=== PATIENT | female | born 1945 | race Hispanic/Latino ===

== ENCOUNTER → 2021-10-08 | Outpatient (CLI) | payer OTHER ==
[2021-10-08 15:31] LABS: CREATININE 0.9 mg/dL (0.5-1.5)
== END | disposition home or self-care (01) ==
LOC: LAB 14:36
PROVIDERS: ATTEND Otolaryngology Plastic Surgery within the Head & Neck
DX: H93.3X9 Disorders of unspecified acoustic nerve (principal)
CPT/HCPCS: 36415; 82565; 84520

== ENCOUNTER → 2021-11-06 | Outpatient (CLI) | payer OTHER ==
[2021-11-06 13:18] LABS: CREATININE 0.7 mg/dL (0.5-1.5)
== END | disposition home or self-care (01) ==
LOC: LAB 12:26
PROVIDERS: ATTEND Otolaryngology Plastic Surgery within the Head & Neck
DX: H90.3 Sensorineural hearing loss, bilateral (principal); H93.3X9 Disorders of unspecified acoustic nerve
CPT/HCPCS: 36415; 82565; 84520

== ENCOUNTER → 2021-11-10 | Outpatient (CLI) | payer OTHER ==
[~2021-11-10] MED LIST: GADOTERATE MEGLUMINE 10 MMOL/20 ML VIAL IV ONE
== END | disposition home or self-care (01) ==
LOC: EDUNIT# 10-15 09:00 → RAH 12:30
PROVIDERS: ATTEND Otolaryngology Plastic Surgery within the Head & Neck
DX: H70.93 Unspecified mastoiditis, bilateral (principal); H93.3X9 Disorders of unspecified acoustic nerve
CPT/HCPCS: 70553; A9575

== ENCOUNTER → 2022-12-29 | Outpatient (CLI) | payer OTHER | END | disposition home or self-care (01) | LOC: RAH 08:49 | PROVIDERS: ATTEND Family Medicine | DX: R92.8 Other abnormal and inconclusive findings on diagnostic imaging of breast (principal); N64.89 Other specified disorders of breast | CPT/HCPCS: 76641; 77065 ==

== ENCOUNTER → 2023-02-16 | Outpatient (CLI) | payer OTHER | END | disposition home or self-care (01) | LOC: RAH 07:45 | PROVIDERS: ATTEND Family Medicine | DX: R07.9 Chest pain, unspecified (principal); R07.81 Pleurodynia | CPT/HCPCS: 71046; 71100 ==

== ENCOUNTER → 2023-02-19 | Outpatient (CLI) | payer OTHER | END | disposition home or self-care (01) | LOC: RAH 12:25 | PROVIDERS: ATTEND Family Medicine | DX: S83.232A Complex tear of medial meniscus, current injury, left knee, initial encounter (principal); M17.12 Unilateral primary osteoarthritis, left knee; M25.462 Effusion, left knee; G89.29 Other chronic pain; M79.662 Pain in left lower leg; M25.562 Pain in left knee; X58.XXXA Exposure to other specified factors, initial encounter; Y93.89 Activity, other specified; Y92.89 Other specified places as the place of occurrence of the external cause; Y99.8 Other external cause status | CPT/HCPCS: 73721 ==